=== PATIENT | female | born 1980 | race Caucasian/White ===

== ENCOUNTER 2019-04-14 19:49 | Inpatient (IN) | payer MEDICAID ==
[~2019-04-14] VITALS: Ht 157.5 cm; Wt 59.9 kg
[2019-04-14 20:05] VITALS: BP 140/90
--- NOTE | 2019-04-14 20:08 | NUR ---
TO LOBBY A/W BED AMBULATORY
--- NOTE | 2019-04-14 20:58 | NUR ---
PT AMBULATED TO BED 06.
[2019-04-14 21:27] LABS: APPEARANCE,URINE CLEAR (CLEAR); BILIRUBIN,URINE 1+ (NEGATIVE); BLOOD, URINE NEGATIVE (NEGATIVE); COLOR,URINE YELLOW (YELLOW); LEUKOCYTE ESTERASE ,URINE 1+ (NEGATIVE); NITRITE, URINE NEGATIVE (NEGATIVE); UGLUCOSE NEGATIVE (NEGATIVE)
--- NOTE | 2019-04-14 21:28 | NUR ---
DR. JAYDE LIRIANO AT BEDSIDE.
--- NOTE | 2019-04-14 21:30 | NUR ---
38 YO F BIB SELF AND FAMILY FOR 11/11 CONSTANT RUQ PAIN X 10 HOURS WITH EPISODE OF VOMITING X 1 THIS MORNING. PT DENIES NVD AT THIS TIME. PT HAS HX OF GALLSTONES AND STATES THIS PAIN FEELS LIKE A GALLSTONE ATTACK. PT DESCRIBES THE PAIN "DEEP" AND IS UNABLE TO DESCRIBE QUALITY. TOOK IBUPROFEN AT HOME WITH LITTLE RELIEF. ABD IS ROUND, SOFT/PLIABLE AND NON TENDER. PT AWAKE, A/O X 4. APPEARS UNCOMFORTABLE BUT IS CALM, COOPERATIVE. SKIN NORMAL FOR ETHNICITY, WARM, DRY. BREATHING EVEN, UNLABORED. PMH-- GALLSTONES
--- NOTE | 2019-04-14 21:48 | NUR ---
US AT BEDSIDE.
[2019-04-14 21:49] LABS: RBC,URINE 0-5 /HPF (0-5)
[2019-04-14 22:28] LABS: BASOPHILS # (AUTO) 0.1 K/uL (0.00-0.22); BASOPHILS % (AUTO) 0.7 % (0.0-2.0); EOSINOPHILS # (AUTO) 0.1 K/uL (0-0.4); EOSINOPHILS % (AUTO) 0.8 % (0.0-4.0); HEMATOCRIT 38.6 % (36-48); HEMOGLOBIN 12.6 g/dL (12.0-16.0); LYMPHOCYTES # (AUTO) 1.8 K/uL (2.5-16.5); LYMPHOCYTES % (AUTO) 20.7 % (20.5-51.1); MEAN CORPUSCULAR HEMOGLOBIN 28 pg (27-31); MEAN CORPUSCULAR HGB CONC 33 g/dL (33-37); MEAN CORPUSCULAR VOLUME 85.4 fL (80-94); MONOCYTES # (AUTO) 0.4 K/uL (0.8-1.0); MONOCYTES % (AUTO) 4.8 % (1.7-9.3); NEUTROPHILS # (AUTO) 6.5 K/uL (1.8-7.7); PLATELET COUNT (AUTO) 249 K/uL (140-450); RED BLOOD CELL COUNT(AUTO) 4.52 MIL/uL (4.20-5.40); RED CELL DISTRIBUTION WIDTH 16.8 % (11.6-13.7); WHITE BLOOD COUNT (AUTO) 8.9 K/uL (4.8-10.8)
[2019-04-14] MEDS ORDERED: ONDANSETRON 4 MG/2 ML VIAL IVP ONE (22:40)
[2019-04-14] MEDS ORDERED: MORPHINE SULFATE 4 MG/ML SYR IVP ONE (22:40)
[2019-04-14 22:53] LABS: ANION GAP 11.9 (8-16); CREATININE 0.6 mg/dL (0.6-1.3); POTASSIUM 3.9 mmol/L (3.5-5.1)
[2019-04-15] MEDS ORDERED: ACETAMINOPHEN 325 MG TAB PO PRN
[2019-04-15] MEDS ORDERED: LORazepam 2 MG/ML VIAL IM/IVP PRN
[2019-04-15] MEDS ORDERED: HYDROcodone/APAP 5/325 MG 1 TAB TAB PO PRN
[2019-04-15] MEDS ORDERED: DOCUSATE SODIUM 100 MG GELCAP PO PRN
[2019-04-15] MEDS ORDERED: ZOLPIDEM 5 MG TAB PO PRN
--- NOTE | 2019-04-15 | NUR ---
MEDICATED WITH 4MG IVP ZOFRAN AND 4 MG IVP MORPHINE. WILL REASSESS.
[2019-04-15] MEDS ORDERED: diphenhydrAMINE 50 MG/ML VIAL IVP SCH ×2 (00:10→12:20)
--- NOTE | 2019-04-15 00:30 | NUR ---
REPORTS PAIN RELIEF; 6/10 PAIN. PT STATES THIS IS TOLERABLE. NAUSEA RESOLVED.
[2019-04-15 00:38] LABS: BARBITURATE, URINE NEG. ng/ml (NEG <=200); BENZODIAZEPINE, URINE NEG. ng/mL (NEG <=200); CANNABINOID, URINE NEG. ng/mL (NEG <=50); COCAINE, URINE NEG. ng/mL (NEG <=300); OPIATE, URINE NEG. ng/mL (NEG <=2000); PHENCYCLIDINE SCREEN,URINE NEG. ng/mL (NEG <=25)
--- NOTE | 2019-04-15 00:40 | NUR ---
Report given and care transfered to Makenzie RN room 119B. Transfered via wheel chair with VSS.
[2019-04-15 00:45] VITALS: BP 130/70
--- NOTE | 2019-04-15 00:45 | NUR ---
RECEIVED PT FROM ER VIA WHEELCHAIR PT IS AAOX4 FRISIAN SPEAKER , AMBULATORY HL ON LEFT AC PATENT GENERALIZED JAUNDICE NOT DISTRESS NOTED . MRSA NARES SWAB SCREEN TAKEN AND SENT OT LAB.PT IS ;ORIENTED TO THE FLOOR CALL LIGHT WITHIN REACH
[2019-04-15 00:58] LABS: CHOL/HDL RATIO 8.3 (1-4.5); FREE T4 (FREE THYROXINE) 1.31 ng/dL (0.76-1.46); PHOSPHORUS 3.5 mg/dL (2.5-4.9); THYROID STIMULATING HORMONE 0.99 uIU/mL (0.34-3.74)
[2019-04-15 01:00] LABS: PROTHROMBIN TIME 9.7 secs (10.8-13.4)
[2019-04-15] MEDS ORDERED: cefTRIAXone 1,000 MG VIAL ONE (01:30)
[2019-04-15] MEDS: NACL 0.9% 1,000 ML IV SCH ×3 (01:37→16:20)
--- NOTE | 2019-04-15 03:15 | NUR ---
PT IS SLEEPING WELL IV ON LEFT AC INFUSING WELL NOT DISTRESS NOTED
[2019-04-15] MEDS: metroNIDAZOLE 500 MG/NS PREMIX 100 ML IV SCH ×3 (05:29→20:28)
--- NOTE | 2019-04-15 05:38 | NUR ---
PT AWAKE RESTING ON BED DENIES ANY PAIN, IV ON LEFT AC INFUSING WELL , NOT DISTRESS NOTED
--- NOTE | 2019-04-15 07:02 | NUR ---
PT JAUNDICE , RESTING ON BED NOT SIGN OF PAIN NOTED IV ON LEFT AC INFUSING WELL, PT WILL BE ENDORSED TO DAY SHIFT NURSE FOR CONTINUE OF CARE
--- NOTE | 2019-04-15 07:30 | NUR ---
RECEIVED REPORT FROM NIGHT NURSE. PT IN BED AWAKE, AAOX4, DENIES PAIN, NO DISTRESS NOTED. FAMILY MEMBER AT THE BEDSIDE. IV IN PLACE, PATENT AND ASYMPTOMATIC INFUSING PER ORDER IN L AC 20G. RESPIRATIONS EVEN AND UNLABORED ON ROOM AIR, CLEAR BREATH SOUNDS. SKIN INTACT. PT IS NPO EXCEPT MEDS. SAFETY MEASURES IN PLACE. CALL LIGHT WITHIN REACH, BED IN LOW POSITION. WILL CONTINUE TO MONITOR.
[2019-04-15 08:00] VITALS: BP 113/67
[2019-04-15] MEDS: LACTOBACILLUS RHAMNOSUS GG 1 EACH CAP PO SCH (08:11)
--- NOTE | 2019-04-15 08:11 | NUR ---
MEDICATIONS ADMINISTERED PER ORDER. PT TOLERATED WELL, NO DISTRESS NOTED. SAFETY MESAURES IN PLACE. CALL LIGHT WITHIN REACH. WILL CONTINUE TO MONITOR.
--- NOTE | 2019-04-15 08:28 | NUR ---
PATIENT HAS BEEN SCREENED AND CATEGORIZED LOW NUTRITION RISK. PATIENT WILL BE SEEN WITHIN 7 DAYS OF ADMISSION. 04/21/[address]
[2019-04-15] MEDS: MORPHINE SULFATE 2 MG/ML SYR IVP PRN ×2 (09:42→20:26)
--- NOTE | 2019-04-15 09:47 | NUR ---
PT COMPLAINS OF PAIN OF 8 AND REQUESTED TO BE MEDICATED WITH PRN MORPHINE. MORPHINE ADMINISTERED AT THIS TIME. FAMILY MEMBER AT THE BEDSIDE.
--- NOTE | 2019-04-15 11:24 | NUR ---
PT STATES FEELING RELIEVED OF PAIN AT A TOLERABLE LEVEL OF 2. WILL CONTINUE TO MONITOR.
--- NOTE | 2019-04-15 12:25 | NUR ---
PT COMPLAINS OF ITCHING, 25MG BENADRYL IV PUSH GIVEN AT THIS TIME. PT IN NO DISTRESS. WILL CONTINUE TO MONITOR.
--- NOTE | 2019-04-15 15:49 | NUR ---
TALKED TO DR HOLM AFTER SEEING PT. PT SCHEDULED FOR LAP RAFAEL ON 04/16, PENDING CONSULT WITH DR RODRIGUEZ TO SCHEDULE AND PERFORM ERCP. RECEIVED ORDER FROM DR HOLM FOR LOW FAT DIET, AND NPO EXCEPT MEDS STARTING MIDNIGHT. CONSENT FOR LAP RAFAEL SIGNED BY PT AND IN CHART. WILL CONTINUE TO MONITOR
[2019-04-15 16:00] VITALS: BP 118/61
--- NOTE | 2019-04-15 17:40 | NUR ---
PT IN BED AWAKE, ACCOMPANIED BY FAMILY MEMBERS AT THE BEDSIDE. NO DISTRESS NOTED, DENIES PAIN. SAFETY MEASURES IN PLACE. CALL LIGHT WITHIN REACH. WILL CONTINUE TO MONITOR.
--- NOTE | 2019-04-15 19:06 | NUR ---
REPORT GIVEN TO NIGHT NURSE FOR CONTINUITY OF CARE.
--- NOTE | 2019-04-15 19:06 | NUR ---
RECIEVED PT AAOX4 , NID , IV SITE INTACT AND PATENT , C/O OF BEARABLE ABDL. PAIN AT THIS TIME. PLAN OF CARE DISCUSSED AND VERBALIZE UNDERSTANDING - CALL LIGHT WITHIN REACH. ON SAFETY PRECAUTION PROTOCOL . WILL CONTINUE TO MONITOR.
--- NOTE | 2019-04-15 20:26 | NUR ---
C/O ABDL. PAIN - PAIN SCALE 8/10 - MEDICATED ORDERED - WILL CONT. TO MONITOR.
[2019-04-15] MEDS: ONDANSETRON 4 MG/2 ML VIAL IM/IVP PRN (20:27)
--- NOTE | 2019-04-15 21:26 | NUR ---
MADE ROUNDS - SHE SAID PAIN IS REDUCED . WILL CONT. TO MONITOR. -CALL LIGHT WITHIN REACH.
[2019-04-16] VITALS: BP 130/74
--- NOTE | 2019-04-16 03:30 | NUR ---
ENDORSED TO JELLY FOR CONT. OF CARE W/ LATEST TEMP 100.2 - NO ACUTE DISTRESS NOTED.
--- NOTE | 2019-04-16 03:30 | NUR ---
RECEIVED BEDSIDE REPORT FROM LETY GRIJALVA. PT IS ASLEEP. RESPIRATIONS ARE EQUAL AND UNLABORED IN ROOM AIR. SKIN IS INTACT. PATIENT IS JAUNDICE. SKIN IS WARM TO THE TOUCH. C/C RUQ PAIN. DX CHOLELITHIASIS. IV ON LAC 20G IVF NS AT 100ML/H. INFUSING WELL. PT IS NPO FOR ERCP WITH DR RODRIGUEZ IN THE AM AND POSSIBLE SX WITH DR VILLAR. PT IS AMBULATORY. CALL LIGHT IS WITHIN REACH. WILL CONTINUE TO MONITOR.
[2019-04-16] MEDS: metroNIDAZOLE 500 MG/NS PREMIX 100 ML IV SCH ×3 (04:24→20:58)
[2019-04-16] MEDS: NACL 0.9% 1,000 ML IV SCH (05:25)
[2019-04-16 07:05] LABS: BASOPHILS % (AUTO) 0.4 % (0.0-2.0); EOSINOPHILS % (AUTO) 0.1 % (0.0-4.0); HEMATOCRIT 39.3 % (36-48); HEMOGLOBIN 13.1 g/dL (12.0-16.0); LYMPHOCYTES # (AUTO) 1.6 K/uL (2.5-16.5); LYMPHOCYTES % (AUTO) 15.6 % (20.5-51.1); MEAN CORPUSCULAR HEMOGLOBIN 28 pg (27-31); MEAN CORPUSCULAR HGB CONC 33 g/dL (33-37); MONOCYTES # (AUTO) 0.5 K/uL (0.8-1.0); MONOCYTES % (AUTO) 5.2 % (1.7-9.3); NEUTROPHILS # (AUTO) 8.2 K/uL (1.8-7.7); NEUTROPHILS % (AUTO) 78.7 % (42.2-75.2); PLATELET COUNT (AUTO) 272 K/uL (140-450); RED BLOOD CELL COUNT(AUTO) 4.68 MIL/uL (4.20-5.40); RED CELL DISTRIBUTION WIDTH 16.4 % (11.6-13.7); WHITE BLOOD COUNT (AUTO) 10.5 K/uL (4.8-10.8)
--- NOTE | 2019-04-16 07:26 | NUR ---
GAVE BEDSIDE REPORT TO DAY RN. PT ENDORSED IN STABLE CONDITION.
--- NOTE | 2019-04-16 07:28 | NUR ---
RECEIVED BEDSIDE REPORT FROM OPERATIONS AND INTELLIGENCE ASSISTANT NURSE SHAQUILLE FOR CONTINUITY OF CARE. PT IS AWAKE AND RESTING ON BED. PT SPEAKS [place] AND ABLE TO UNDERSTAND MINIMAL OF [place]. RESPIRATION EVEN AND UNLABORED ON RA. NO SIGNS OF DISTRESS NOTED. IV ON LAC 20G, CLEAN AND INTACT, INFUSING PER MD ORDER. SKIN CLEAN AND DRY. PT IS CONTINENT AND ABLE TO AMBULATE. NPO ENFORCED AND SIGN POSTED ON DOOR. PT IS AWARE OF BEING NPO. SAFETY MEASURES IN PLACE. BED IN LOW POSITION AND CALL LIGHT WITHIN REACH. INSTRUCTED PT TO USE THE CALL LIGHT FOR ANY ASSISTANCE AND PT WAS AWARE.
[2019-04-16 07:35] LABS: ALBUMIN 2.6 g/dL (3.4-5.0); ANION GAP 12.7 (8-16); CREATININE 0.4 mg/dL (0.6-1.3); POTASSIUM 3.7 mmol/L (3.5-5.1); TOTAL BILIRUBIN 6.5 mg/dL (0.0-1.0)
[2019-04-16 08:00] VITALS: BP 123/85
[2019-04-16] MEDS: LACTOBACILLUS RHAMNOSUS GG 1 EACH CAP PO SCH (08:55)
[2019-04-16] MEDS: DEXT 5% /NACL 0.9% 1,000 ML IV SCH ×2 (08:56→18:44)
--- NOTE | 2019-04-16 08:56 | NUR ---
ADMINISTERED MED PER MD ORDER, MED ED PROVIDED TO PT AND JUAN FRANCISCO BARLOW AT BEDSIDE, BOTH VERBALIZED UNDERSTANDING. PT TOLERATED MED WELL WITH A SIP OF WATER. CHANGED IVF TO D5 NS AND INFUSING AT 100 ML/HR. PT DENIED PAIN, SOB, AND DIZZINESS. NO SIGNS OF DISTRESS NOTED. SAFETY MEASURES IN PLACE. BED IN LOW POSITION AND CALL LIGHT WITHIN REACH. INSTRUCTED PT TO USE THE CALL LIGHT FOR ANY ASSISTANCE AND PT AWARE.
--- NOTE | 2019-04-16 09:16 | NUR ---
USED [facility] TO COMPLETE PRE-OP CHECKLIST FOR ERCP, SPOKE WITH ANGEL #[id number]. PT WAS AWARE OF PROCEDURE IS TAKING PLACE AND WILL MAINTAIN NPO. PT IS AWAKE AND TALKING TO COUSIN YEN BY BEDSIDE. NO SIGNS OF DISTRESS NOTED. SAFETY MEASURES IN PLACE.
--- NOTE | 2019-04-16 11:10 | NUR ---
PT AWAKE AND RESTING ON BED AT THIS TIME. FAMILY BY BEDSIDE. DENIED PAIN, SOB AND DIZZINESS. NO SIGNS OF DISTRESS NOTED. NPO MAINTAINED. SAFETY MEASURES IN PLACE. BED LOW POSITION AND CALL LIGHT WITHIN REACH. INSTRUCTED PT TO USE THE CALL LIGHT FOR ANY ASSISTANCE AND ALL SAID "OK."
--- NOTE | 2019-04-16 13:31 | NUR ---
DC PLANNIN YRS OLD FEMALE PATIENT WAS ADMITTED FROM HOME WITH A DX OF CHOLELITHIASIS . PT HAS NO MEDICAL HISTORY. ULTRASOUND SHOWED CHOLELITHIASIS WITH MILD GALLBLADDER WAS THICKENING. ADMINISTERED MORPHINE IVP FOR PAIN, IVF AND FLAGYL IV ABX . CONSULTED WITH DR VILLAR FOR SURGERY. DC PLAN TO GO HOME WHEN STABLE. CM TO FOLLOW Addendum: 04/20/19 at 1535 by Amanda Padron CM DC PLANNING: S/P LAP RAFAEL AND REMOVAL OF GAL STONE WITH OUT REMOVAL GALL BLADDER, ERCP PERFORMED BY DR RODRIGUEZ. PATIENT TOLERATED WELL , CLEARED BY THE SURGEON AND GI AND DC HOMED AND F/U WITH THE SURGEON ON APR 27 AT 9:30 AM PT VERBALIZED UNDERSTANDING.
--- NOTE | 2019-04-16 13:47 | NUR ---
ADMINISTERED FLAGYL PER MD ORDER, MED ED PROVIDED TO PT AND COUSIN YEN AT BEDSIDE, BOTH VERBALIZED UNDERSTANDING. PT AWAKE AND RESTING ON BED. NO SIGNS OF DISTRESS NOTED. SAFETY MEASURES IN PLACE.
[2019-04-16] MEDS ORDERED: PROPOFOL 200 MG/20 ML VIAL IV ONE (14:45)
[2019-04-16] MEDS: LACTATED RINGERS 1,000 ML IV SCH (16:17)
[2019-04-16] MEDS ORDERED: ONDANSETRON 4 MG/2 ML VIAL IVP PRN (16:20)
[2019-04-16] MEDS ORDERED: HYDROmorphone 1 MG/ML AMP IVP PRN (16:20)
[2019-04-16] MEDS ORDERED: MEPERIDINE 25 MG/ML SYR IVP PRN (16:20)
[2019-04-16] MEDS ORDERED: diphenhydrAMINE 50 MG/ML VIAL IVP PRN (16:20)
[2019-04-16 17:15] VITALS: BP 112/64
--- NOTE | 2019-04-16 17:15 | NUR ---
PT CAME BACK TO UNIT ACCOMPANY WITH OR NURSES. PT IS AWAKE AND RESTING ON BED. VITAL SIGNS TAKEN. NO SIGNS OF DISTRESS NOTED. FAMILY BY BEDSIDE. SAFETY MEASURES IN PLACE.
--- NOTE | 2019-04-16 18:44 | NUR ---
EXPLAINED TO PT AND MOTHER AT BEDSIDE THAT DR CHANGED DIET TO CLEAR LIQUID AND NPO AFTER MIDNIGHT, BOTH SAID OK. CALLED FNA AND LEFT A MESSAGE. FINANCIAL SYSTEMS ANALYST IS GOING TO SUPERVISOR [employer]OD CREW A FOOD TRAY. PT IS RESTING ON BED AT THIS TIME. NO SIGNS OF DISTRESS NOTED. SAFETY MEASURES IN PLACE.
--- NOTE | 2019-04-16 18:54 | NUR ---
PT RECEIVED HER DINNER TRAY. NO SIGNS OF DISTRESS NOTED. MOTHER BY BEDSIDE.
--- NOTE | 2019-04-16 19:17 | NUR ---
ENDORSED PT AT BEDSIDE TO SIGHT EFFECTS SPECIALIST NURSE FOR CONTINUITY OF CARE. PT AWAKE AND EATING POPSICLE ON BED. FAMILY BY BEDSIDE. NO SIGNS OF DISTRESS NOTED. PT IS IN STABLE CONDITION. SAFETY MEASURES IN PLACE.
--- NOTE | 2019-04-16 19:18 | NUR ---
RECEIVED BEDSIDE REPORT FROM AM SHIFT NURSE MARICARMEN FOR CONTINUITY OF CARE. PT IS AWAKE AND RESTING ON BED. PT SPEAKS CITIZ[place] OF [place] AND ABLE TO UNDERSTAND MINIMAL OF [place]. WITH FAMILY AT BEDSIDE, ACTING WATER RESOURCES PROJECT MANAGER.PT IS AMBULATORY. NO SIGNS OF RESPIRATORY DISTRESS NOTED, ON RA. IV ON LAC 20G, PATENT AND INTACT. SKIN CLEAN AND DRY. CLEAR LIQ BUT NPO STARTING MIDNIGHT. FOR LAP RAFAEL TOMORROW. CONSENT SIGNED ATTACHED TO CHART. PLACED ON LOW BED. CALL LIGHT WITHIN REACH
--- NOTE | 2019-04-16 20:00 | NUR ---
FAMILY LEFT AND FIXED IV ON THE LEFT AC 20, IV PUMP KEPT ON BEEPING. FLUSHED IV AND READJUSTED THE LINE. PLACED IV SPLINT ON ELBOW.
--- NOTE | 2019-04-16 23:27 | NUR ---
PT TRYING TO GET SOME SLEEP, PT COMFORTABLE NO COMPLAINTS AT THIS TIME
[2019-04-17] VITALS: BP 116/65
[2019-04-17] MEDS: LACTATED RINGERS 1,000 ML IV SCH ×2 (00:37→08:57)
--- NOTE | 2019-04-17 00:46 | NUR ---
D5 NS AT 100 ML/ RUNNING, LR TO BE GIVEN AFTER OR CHANDA PER ENDORSEMENT
--- NOTE | 2019-04-17 02:45 | NUR ---
PT HAVING HARD TIME TO SLEEP BECAUSE OF PAIN, ABDOMEN. WILL MEDICATE ORDERED
--- NOTE | 2019-04-17 04:00 | NUR ---
PT SLEEPING, BUT EASILY AWAKENED, STILL W/ SOME LACK OF SLEEP. WILL CONTINUE TO MONITOR.
[2019-04-17] MEDS: metroNIDAZOLE 500 MG/NS PREMIX 100 ML IV SCH ×3 (04:54→21:25)
[2019-04-17] MEDS: DEXT 5% /NACL 0.9% 1,000 ML IV SCH (06:08)
--- NOTE | 2019-04-17 06:15 | NUR ---
PT ASLEEP BUT EASILY AWAKENED, NO COMPLAINTS OF PAIN AT THIS TIME. NO SOB, NO RESPIRATORY DISTRESS. ENDORSED TO NEXT SHIFT FOR CONTINUITY OF CARE.
--- NOTE | 2019-04-17 07:15 | NUR ---
RECEIVED ENDORSEMENT AT BEDSIDE FROM NOC SHIFT RN. PATIENT IS AWAKE, ALERT AND ORIENTED X 4. NOT IN ANY DISTRESS. PATIENT IS ON ROOM AIR. RESPIRATION EVEN AND UNLABORED. NO C/O PAIN/DISCOMFORT. NKA. FULL CODE. ON NPO FOR SURGERY. IV SITE TO LAC 20 G. INTACT AND PATENT WITH IVF INFUSING WELL. SKIN IS INTACT. ABLE TO AMBULATE WITH ASSIST. SAFETY MEASURES IN PLACE. CALL LIGHT BUTTON WITHIN REACH.
[2019-04-17 07:21] LABS: BASOPHILS % (AUTO) 0.6 % (0.0-2.0); EOSINOPHILS # (AUTO) 0.1 K/uL (0-0.4); EOSINOPHILS % (AUTO) 0.8 % (0.0-4.0); HEMATOCRIT 35.6 % (36-48); HEMOGLOBIN 11.7 g/dL (12.0-16.0); LYMPHOCYTES # (AUTO) 1.7 K/uL (2.5-16.5); LYMPHOCYTES % (AUTO) 24.9 % (20.5-51.1); MEAN CORPUSCULAR HEMOGLOBIN 28 pg (27-31); MEAN CORPUSCULAR HGB CONC 33 g/dL (33-37); MEAN CORPUSCULAR VOLUME 84.8 fL (80-94); MONOCYTES # (AUTO) 0.4 K/uL (0.8-1.0); MONOCYTES % (AUTO) 6.5 % (1.7-9.3); NEUTROPHILS # (AUTO) 4.5 K/uL (1.8-7.7); NEUTROPHILS % (AUTO) 67.2 % (42.2-75.2); PLATELET COUNT (AUTO) 235 K/uL (140-450); RED BLOOD CELL COUNT(AUTO) 4.19 MIL/uL (4.20-5.40); RED CELL DISTRIBUTION WIDTH 16.5 % (11.6-13.7); WHITE BLOOD COUNT (AUTO) 6.7 K/uL (4.8-10.8)
[2019-04-17 07:24] LABS: ALBUMIN 2.4 g/dL (3.4-5.0); ANION GAP 11.8 (8-16); CARBON DIOXIDE 26.9 mmol/L (21-32); CREATININE 0.4 mg/dL (0.6-1.3); POTASSIUM 3.7 mmol/L (3.5-5.1)
[2019-04-17 07:41] LABS: TOTAL BILIRUBIN 4.9 mg/dL (0.0-1.0)
[2019-04-17 08:00] VITALS: BP 115/73
[2019-04-17] MEDS: LACTOBACILLUS RHAMNOSUS GG 1 EACH CAP PO SCH (09:00)
--- NOTE | 2019-04-17 09:54 | NUR ---
PT IS RESTING ON BED. DENIED PAIN, SOB AND DIZZINESS. NO SIGNS OF DISTRESS NOTED. SAFETY MEASURES IN PLACE.
--- NOTE | 2019-04-17 11:08 | NUR ---
PT IS AWAKE AND TALKING TO FAMILY AT BEDSIDE. NO SIGNS OF DISTRESS NOTED. SAFETY MEASURES IN PLACE.
--- NOTE | 2019-04-17 13:05 | NUR ---
ADMINISTERED MED PER MD ORDER. NO A/R NOTED. MED ED PROVIDED. PATIENT IS RESTING ON BED. FAMILY AT BEDSIDE. NO SOB NOTED. SAFETY MEASURES IN PLACE.
--- NOTE | 2019-04-17 15:31 | NUR ---
PT IS OFF UNIT WITH OR NURSES. PT IS IN STABLE CONDITION.
[2019-04-17] MEDS ORDERED: KETOROLAC 30 MG/ML VIAL IVP PRN (15:40)
[2019-04-17] MEDS ORDERED: BUPIVACAINE-MPF 0.25% 30 ML VIAL INJ ONE (15:48)
[2019-04-17] MEDS ORDERED: KETOROLAC 30 MG/ML VIAL ONE (16:11)
[2019-04-17] MEDS ORDERED: ONDANSETRON 4 MG/2 ML VIAL ONE (16:11)
[2019-04-17] MEDS ORDERED: DESFLURANE 240 ML BTL INH ONE (16:11)
[2019-04-17] MEDS ORDERED: ROCURONIUM 50 MG/5 ML VIAL IV ONE (16:11)
[2019-04-17] MEDS ORDERED: HYDROmorphone PFS 2 MG/ML SYR ONE (16:11)
[2019-04-17] MEDS ORDERED: PROPOFOL 200 MG/20 ML VIAL IV ONE (16:11)
[2019-04-17] MEDS ORDERED: DEXAMETHASONE 4 MG/ML VIAL ONE (16:11)
[2019-04-17] MEDS ORDERED: HYDROmorphone 1 MG/ML AMP IVP PRN (17:15)
[2019-04-17] MEDS ORDERED: ONDANSETRON 4 MG/2 ML VIAL IVP PRN (17:15)
--- NOTE | 2019-04-17 19:17 | NUR ---
FULL REPORT GAVE TO RUNNER ON NURSE. PT IS AT RECOVERY ROOM AT THIS TIME.
--- NOTE | 2019-04-17 19:20 | NUR ---
RECEIVED BEDSIDE REPORT FROM AM SHIFT RN FOR PT'S CONTINUITY OF CARE. PT IS CURRENTLY STILL IN POST OP. FAMILY MEMBERS IN THE PT'S ROOM. GAVE UPDATE, THEY VERBALIZED UNDERSTANDING.
--- NOTE | 2019-04-17 20:05 | NUR ---
RECEIVED BEDSIDE REPORT FROM POST OP RN DEMARCUS, FOR PT'S CONTINUITY OF CARE. PT IS AAOX4, HONDURAN SPEAKING, STATUS POST EXPLORATORY LAP, AND OPEN LAP, DRESSING DRY AND INTACT, CHRISTIANO DRAIN IN PLACE WITH LESS THAN 10ML OUTPUT, PT HAS NG TUBE IN PLACE, ON ROOM AIR, HAS LEFT AC 20G SALINE LOCK AND RIGHT HAND 18G WITH LR WIDE OPEN, FROM SURGERY, CHAU CATH IN PLACE, PT STATES HAS PAIN 7/10 BUT REFUSED PAIN MEDICATION. SAFETY MEASURES IN PLACE, AND CALL LIGHT WITHIN REACH. ORIENTED PT TO TIE FASTENER ROUTINE, AND HOSPITAL ENVIRONMENT, PT VERBALIZED UNDERSTANDING. POST OP VS PROTOCOL FOLLOWED. WILL CONTINUE TO MONITOR PT.
[2019-04-17] MEDS: DEXT 5% / NACL 0.45% 1,000 ML IV SCH (21:30)
--- NOTE | 2019-04-17 21:30 | NUR ---
PT AWAKE, FAMILY MEMBERS AT BEDSIDE. ADMINISTERED SCHEDULED IVF AND IV ABX ORDERED. PT COMFORTABLE AND NEEDS ARE MET AT THIS TIME.
--- NOTE | 2019-04-17 23:00 | NUR ---
SPOKE WITH DR. VILLAR FOR NG TUBE VERIFICATION FOR INDICATION. Larissa VILLAR ORDERED NG TUBE FOR IMPAIRMENT OF DUODENUM, ON LOW INTERMITTENT SUCTION; XRAY FOR PLACEMENT VERIFICATION; PROTONIX 40MG IVP ONCE A DAY. WILL CARRY OUT ORDERS.
--- NOTE | 2019-04-17 23:30 | NUR ---
RT AT BEDSIDE FOR INCENTIVE SPIROMETER TEACHING. ATTACHED NG TUBE TO LOW INTERMITTENT SUCTION, PT TOLERATING IT WELL. BEEF PUSHER AT BEDSIDE FOR VERIFICATION OF NG TUBE PLACEMENT. PT DENIES ANY NEEDS AT THIS TIME.
[2019-04-18] VITALS: BP 107/56
--- NOTE | 2019-04-18 00:07 | NUR ---
VS CHECKED AND CHARTED. ADMINISTERED SCHEDULED IV ABX ORDERED. PT DENIES ANY PAIN AT THIS TIME. PT MADE COMFORTABLE. SAFETY MEASURES IN PLACE, AND CALL LIGHT IS WITHIN REACH. WILL CONTINUE TO MONITOR PT.
[2019-04-18] MEDS: MORPHINE SULFATE 2 MG/ML SYR IVP PRN ×2 (03:30→08:32)
--- NOTE | 2019-04-18 03:30 | NUR ---
PT C/O ABD PAIN 09/10. ADMINISTERED PRN IVP PAIN MEDICATION ORDERED. ASSESSED CHRISTIANO DRAIN. ASSESSED DRESSING - DRY AND INTACT, NG TUBE ON LOW INTERMITTENT SUCTION. PT'S NEEDS MET. WILL CONTINUE TO MONITOR PT.
[2019-04-18 04:00] VITALS: BP 124/72
[2019-04-18] MEDS: metroNIDAZOLE 500 MG/NS PREMIX 100 ML IV SCH ×3 (04:28→21:11)
--- NOTE | 2019-04-18 04:28 | NUR ---
ADMINISTERED SCHEDULED IV ABX ORDERED. PT TOLERATED THEM WELL. EMPTIED CHRISTIANO DRAIN, OUT 40 ML. CHAU CATH 650 ML OUT. PT TEACHING GIVEN FOR BEDPAN USE, BEDPAN IN THE RESTROOM.
[2019-04-18] MEDS: DEXT 5% / NACL 0.45% 1,000 ML IV SCH ×2 (04:45→15:09)
--- NOTE | 2019-04-18 06:10 | NUR ---
PT LYING DOWN ASLEEP. RESPIRATIONS EVEN AND UNLABORED. NG TUBE IN PLACE, ON LOW INTERMITTENT SUCTION, VERY MINIMAL OUTPUT, ONLY ON THE TUBING. PT SHOWS NO SIGNS OF DISTRESS OR DISCOMFORT. WILL ENDORSE TO AM SHIFT RN FOR PT'S CONTINUITY OF CARE.
[2019-04-18 07:10] LABS: BASOPHILS # (AUTO) 0.1 K/uL (0.00-0.22); BASOPHILS % (AUTO) 0.7 % (0.0-2.0); HEMATOCRIT 35.7 % (36-48); HEMOGLOBIN 11.8 g/dL (12.0-16.0); LYMPHOCYTES # (AUTO) 2.1 K/uL (2.5-16.5); LYMPHOCYTES % (AUTO) 20.5 % (20.5-51.1); MEAN CORPUSCULAR HEMOGLOBIN 28 pg (27-31); MEAN CORPUSCULAR HGB CONC 33 g/dL (33-37); MEAN CORPUSCULAR VOLUME 84.6 fL (80-94); MONOCYTES # (AUTO) 0.6 K/uL (0.8-1.0); NEUTROPHILS # (AUTO) 7.6 K/uL (1.8-7.7); NEUTROPHILS % (AUTO) 72.8 % (42.2-75.2); PLATELET COUNT (AUTO) 278 K/uL (140-450); RED BLOOD CELL COUNT(AUTO) 4.22 MIL/uL (4.20-5.40); RED CELL DISTRIBUTION WIDTH 16.6 % (11.6-13.7); WHITE BLOOD COUNT (AUTO) 10.4 K/uL (4.8-10.8)
--- NOTE | 2019-04-18 07:15 | NUR ---
RECEIVED REPORT FROM NIGHT NURSE. PT IN BED AWAKE, AAOX4, NO DISTRESS NOTED, DENIES PAIN. IV IN PLACE IN L AC 20G PATENT AND ASYMPTOMATIC INFUSING PER ORDER. R HAND IV PATENT AND ASYMPTOMATIC SALINE LOCKED. RESPIRATIONS EVEN AND UNLABORED ON ROOM AIR. SURGICAL WOUNDS PRESENT IN ABDOMEN, DRAINAGE CLEAN AND INTACT, CHIRSTIANO IN PLACE. CHAU IN PLACE. NG TUBE IN PLACE. SAFETY MEASURES IN PLACE. CALL LIGHT WITHIN REACH. BED IN LOW POSITION. WILL CONTINUE TO MONITOR.
[2019-04-18 07:32] LABS: ANION GAP 12.3 (8-16); CARBON DIOXIDE 26.4 mmol/L (21-32); CREATININE 0.4 mg/dL (0.6-1.3); POTASSIUM 3.7 mmol/L (3.5-5.1); TOTAL BILIRUBIN 2.5 mg/dL (0.0-1.0)
[2019-04-18 08:00] VITALS: BP 107/63
[2019-04-18] MEDS: LACTOBACILLUS RHAMNOSUS GG 1 EACH CAP PO SCH (08:30)
[2019-04-18] MEDS: PANTOPRAZOLE 40 MG INJ VIAL IVP SCH (08:31)
--- NOTE | 2019-04-18 08:56 | NUR ---
MEDICATIONS ADMINISTERED PER ORDER. PT TOLERATED WELL, NO DISTRESS NOTED. PT REEDUCATED ON USE OF INCENTIVE SPIROMETER. PERFORMED 10 BREATHS. SAFETY MEASURES IN PLACE. CALL LIGHT WITHIN REACH. WILL CONTINUE TO MONITOR.
--- NOTE | 2019-04-18 09:15 | NUR ---
Spoke to Yordy from [facility] transfer service re: transfer request. Face sheet, H&P, operative record, recent MD progress notes, labs, & med list faxed to [phone] per request. Awaiting review and approval of transfer.
--- NOTE | 2019-04-18 09:20 | NUR ---
Called [facility] transfer service re: transfer request but inpatient currently full.
--- NOTE | 2019-04-18 09:28 | NUR ---
Spoke to Rhoda from [facility] transfer service re: transfer request. Face sheet, H&P, operative record, recent MD progress notes, labs, & med list faxed to [phone] per request. Awaiting review and approval of transfer.
--- NOTE | 2019-04-18 09:56 | NUR ---
Received call back from [facility] transfer center requesting for Dr Aguilar's direct number re: inquiries from Dr. Raymond (general surgeon). 's phone number provided.
--- NOTE | 2019-04-18 11:27 | NUR ---
NGT TUBE AND CHAU REMOVED AT THIS TIME PER ORDER. PT TOLERATED WELL, NO DISTRESS NOTED. NO COMPLICATIONS. FAMILY MEMBERS AT THE BEDSIDE. SAFETY MEASURES IN PLACE. CALL LIGHT WITHIN REACH. WILL CONTINUE TO MONITOR.
[2019-04-18 12:00] VITALS: BP 109/61
--- NOTE | 2019-04-18 13:59 | NUR ---
MEDICATIONS ADMINISTERED PER ORDER. PT TOLERATED WELL. NO DISTRESS NOTED. SAFETY MEASURES IN PLACE. CALL LIGHT WITHIN REACH. WILL CONTINUE TO MONITOR.
[2019-04-18 16:00] VITALS: BP 113/60
--- NOTE | 2019-04-18 16:20 | NUR ---
PT AWAKE IN BED WITH FAMILY MEMBERS AT THE BEDSIDE. NO DISTRES NOTED, DENIES PAIN AT THIS TIME. RESPIRATIONS EVEN AND UNLABORED. SAFETY MEASURES IN PLACE. CALL LIGHT WITHIN REACH, WILL CONTINUE TO MONITOR.
--- NOTE | 2019-04-18 18:20 | NUR ---
ASSISTED PT IN URINATING IN BED MENDEZ. CHRISTIANO DRAINED, 55ML OUTPUT. SAFETY MEASURES IN PLACE. CALL LIGHT WITHIN REACH. WILL CONTINUE TO MONITOR.
--- NOTE | 2019-04-18 19:10 | NUR ---
REPORT GIVEN TO NIGHT NURSE FOR CONTINUITY OF CARE.
--- NOTE | 2019-04-18 19:10 | NUR ---
RECIEVED PT AAOX4 , C/O HEADACHE , AFEBRILE , W SURGICAL SITE INTACT - W/ DRAIN - INTACT AND PATENT , IV SITE INTACT AND PATENT , POST REMOVAL OF FC - VOIDED FREELY 2X / BEDPAN , POST REMOVAL OF NGT - ATE FULL LIQ. DIET - TOLERATED WELL . RELATIVES AT BEDSIDE . POC DISCUSSED AND VERBALIZE UNDERSTANDING. ON SAFETY / FALL PRECAUTION PROTOCOL - CALL LIGHT WITHIN REACH . WILL CONT. TO MONITOR - WILL MEDICATE FOR HEADACHE .
[2019-04-18] MEDS: HYDROcodone/APAP 5/325 MG 1 TAB TAB PO PRN (19:50)
[2019-04-18 20:00] VITALS: BP 114/77
--- NOTE | 2019-04-18 23:00 | NUR ---
NPO BEGIN AT MN - FOR NM HIDA SCAN GB CHANDA .
[2019-04-19] VITALS: BP 110/60
--- NOTE | 2019-04-19 02:00 | NUR ---
MADE ROUNDS . NO S/S OF ACUTE DISTRESS NOTED AT THIS TIME , CALL LIGHT RADHA QUINN.
[2019-04-19] MEDS: DEXT 5% / NACL 0.45% 1,000 ML IV SCH ×3 (02:32→20:45)
[2019-04-19] MEDS: MORPHINE SULFATE 2 MG/ML SYR IVP PRN (02:47)
[2019-04-19] MEDS: ONDANSETRON 4 MG/2 ML VIAL IM/IVP PRN (02:47)
--- NOTE | 2019-04-19 02:47 | NUR ---
C/O PAIN SHE RATES THE PAIN 09/10 - WILL MEDICATE ORDERED . CALL LIGHT WITH REACH . DRESSING INTACT - NO SIGNS OF ACTIVE BLEEDING NOTED AT THIS TIME. CALL LIGHT WITHIN REACH.
[2019-04-19 04:00] VITALS: BP 120/77
--- NOTE | 2019-04-19 04:00 | NUR ---
MADE ROUNDS , NO S/ S OF ACUTE DISTRESS , BEARABLE PAIN SHE SAID.NO ACTIVE BLEEDING IN SURGICAL , WILL CONT. TO MONITOR.
[2019-04-19] MEDS: metroNIDAZOLE 500 MG/NS PREMIX 100 ML IV SCH ×3 (04:33→20:49)
--- NOTE | 2019-04-19 07:12 | NUR ---
ENDORSE - PT - STABLE.
--- NOTE | 2019-04-19 07:13 | NUR ---
RECEIVED REPORT FROM MARBLE CARVER NURSE. PT IS AWAKE AND STABLE. PT HAS IV ON LEFT AC. ON ROOM AIR. PT IS ON FULL LIQUID DIET. CALL LIGHT WITHIN PT'S REACH, BED ON LOW, SIDE RAILS UP. WILL CONTINUE TO MONITOR
[2019-04-19 07:52] LABS: BASOPHILS # (AUTO) 0.1 K/uL (0.00-0.22); BASOPHILS % (AUTO) 0.6 % (0.0-2.0); EOSINOPHILS # (AUTO) 0.2 K/uL (0-0.4); EOSINOPHILS % (AUTO) 1.6 % (0.0-4.0); HEMATOCRIT 34.2 % (36-48); HEMOGLOBIN 11.5 g/dL (12.0-16.0); LYMPHOCYTES # (AUTO) 2.1 K/uL (2.5-16.5); LYMPHOCYTES % (AUTO) 19.7 % (20.5-51.1); MEAN CORPUSCULAR HEMOGLOBIN 28 pg (27-31); MEAN CORPUSCULAR HGB CONC 34 g/dL (33-37); MEAN CORPUSCULAR VOLUME 83.1 fL (80-94); MONOCYTES # (AUTO) 0.6 K/uL (0.8-1.0); MONOCYTES % (AUTO) 5.1 % (1.7-9.3); NEUTROPHILS # (AUTO) 7.9 K/uL (1.8-7.7); PLATELET COUNT (AUTO) 259 K/uL (140-450); RED BLOOD CELL COUNT(AUTO) 4.12 MIL/uL (4.20-5.40); WHITE BLOOD COUNT (AUTO) 10.8 K/uL (4.8-10.8)
[2019-04-19 07:53] LABS: ANION GAP 10.9 (8-16); CARBON DIOXIDE 27.8 mmol/L (21-32); CREATININE 0.4 mg/dL (0.6-1.3); POTASSIUM 3.7 mmol/L (3.5-5.1)
[2019-04-19 08:00] VITALS: BP 119/77
[2019-04-19 08:01] LABS: BILIRUBIN,DIRECT 1.4 mg/dL (0.0-0.3)
[2019-04-19] MEDS: PANTOPRAZOLE 40 MG INJ VIAL IVP SCH (11:32)
[2019-04-19] MEDS: LACTOBACILLUS RHAMNOSUS GG 1 EACH CAP PO SCH (11:33)
[2019-04-19] MEDS: HYDROcodone/APAP 5/325 MG 1 TAB TAB PO PRN (11:34)
--- NOTE | 2019-04-19 11:40 | NUR ---
MORNING MEDS GIVEN AFTER THE SCAN WAS DONE. PT IS SITTING ON THE CHAIR. PT TOLERATED WELL. WILL CONTINUE TO MONITOR
[2019-04-19 12:00] VITALS: BP 110/68
--- NOTE | 2019-04-19 12:18 | NUR ---
IV FLUID CHANGED AND HANGED FLAGYL VIA PIGGYBACK. CLEANED AND APPLIED DRESSING ON SURGICAL WOUND OREDERED BY DR. LUGO
--- NOTE | 2019-04-19 12:53 | NUR ---
PT IS PICKED UP BY RADIOLOGY FOR NM HIDA GB VASC. FLOW. PT IS STABLE.
--- NOTE | 2019-04-19 15:30 | NUR ---
DRAINED 60 CC OF SEROUS DRAINAGE. PT IS SITING ON BED. PT IS STABLE. FAMILY AT BEDSIDE. WILL CONTINUE TO MONITOR
[2019-04-19 16:00] VITALS: BP 120/70
--- NOTE | 2019-04-19 18:55 | NUR ---
REPORT GIVEN TO DEAN NURSE. PT IS STABLE. FAMILY AT BEDSIDE. CALL LIGHT WITHIN PT'S REACH
--- NOTE | 2019-04-19 19:00 | NUR ---
RECEIVED BEDSIDE REPORT FROM DAY SHIFT NURSE. PATIENT IS AWAKE, ALERT, AND COOPERATIVE. RESPIRATION EVEN UNLABORED ON ROOM AIR. NO DISTRESS NOTED. SKIN IS WARM AND DRY. IV PATENT AND INTACT. PLAN OF CARE WAS DISCUSSED. FAMILY AT BEDSIDE. ALL SAFETY MEASURES IN PLACE. BED IS AT LOW POSITION. CALL LIGHT WITHIN REACH AND VERBALIZES ITS USE. WILL CONTINUE TO MONITOR.
--- NOTE | 2019-04-19 19:54 | NUR ---
INITIAL ASSESSMENT DONE. VITALS WERE TAKEN. S/P LAP RAFAEL. SURGICAL INCISION CLEAN AND NO SIGN AND SYMPTOMS OF INFECTION. CHRISTIANO DRAINAGE NOTED. DRAINING SERIOUGENOUS COLOR. DENIES PAIN. WILL CONTINUE TO MONITOR.
[2019-04-19 20:00] VITALS: BP 129/86
--- NOTE | 2019-04-19 20:49 | NUR ---
ALL SCHEDULED MEDS WERE GIVEN PER ORDER. NO ASE NOTED. WILL CONTINUE TO MONITOR.
--- NOTE | 2019-04-19 22:33 | NUR ---
CHECKED PATIENT. PATIENT IS WATCHING TV RESPIRATION EVEN UNLABORED ON ROOM AIR. NO DISTRESS NOTED. WILL CONTINUE TO MONITOR.
[2019-04-20] VITALS: BP 116/75
--- NOTE | 2019-04-20 00:02 | NUR ---
VITALS WERE TAKEN. PATIENT IN STABLE CONDITION. NO DISTRESS NOTED. WILL CONTINUE TO MONITOR.
[2019-04-20] MEDS: MORPHINE SULFATE 2 MG/ML SYR IVP PRN (01:14)
--- NOTE | 2019-04-20 01:15 | NUR ---
PATIENT COMPLAINED OF HEADACHE 09/10. PRN PAIN MED ADMINISTER PER ORDER. WILL CONTINUE TO MONITOR.
--- NOTE | 2019-04-20 02:30 | NUR ---
CHECKED PATIENT. PATIENT SLEEPING RESPIRATION EVEN UNLABORED ON ROOM AIR. NO DISTRESS NOTED. WILL CONTINUE TO MONITOR.
--- NOTE | 2019-04-20 03:51 | NUR ---
VITALS WERE TAKEN. PATIENT IN STABLE CONDITION. NO DISTRESS NOTED. WILL CONTINUE TO MONITOR.
[2019-04-20 04:00] VITALS: BP 122/78
--- NOTE | 2019-04-20 04:13 | NUR ---
CHRISTIANO DRAINAGE 50 CC SEROSANGUINEOUS COLOR.
[2019-04-20] MEDS: metroNIDAZOLE 500 MG/NS PREMIX 100 ML IV SCH (04:42)
[2019-04-20] MEDS: DEXT 5% / NACL 0.45% 1,000 ML IV SCH (04:43)
[2019-04-20 06:21] LABS: BASOPHILS # (AUTO) 0.1 K/uL (0.00-0.22); BASOPHILS % (AUTO) 1.1 % (0.0-2.0); EOSINOPHILS # (AUTO) 0.3 K/uL (0-0.4); EOSINOPHILS % (AUTO) 2.9 % (0.0-4.0); HEMATOCRIT 31.6 % (36-48); HEMOGLOBIN 10.5 g/dL (12.0-16.0); LYMPHOCYTES % (AUTO) 21.7 % (20.5-51.1); MEAN CORPUSCULAR HEMOGLOBIN 28 pg (27-31); MEAN CORPUSCULAR HGB CONC 33 g/dL (33-37); MEAN CORPUSCULAR VOLUME 83.9 fL (80-94); MONOCYTES # (AUTO) 0.6 K/uL (0.8-1.0); MONOCYTES % (AUTO) 6.7 % (1.7-9.3); NEUTROPHILS # (AUTO) 6.4 K/uL (1.8-7.7); NEUTROPHILS % (AUTO) 67.6 % (42.2-75.2); PLATELET COUNT (AUTO) 259 K/uL (140-450); RED BLOOD CELL COUNT(AUTO) 3.76 MIL/uL (4.20-5.40); WHITE BLOOD COUNT (AUTO) 9.4 K/uL (4.8-10.8)
[2019-04-20 06:35] LABS: ANION GAP 12.2 (8-16); CARBON DIOXIDE 27.1 mmol/L (21-32); CREATININE 0.5 mg/dL (0.6-1.3); POTASSIUM 3.3 mmol/L (3.5-5.1)
[2019-04-20 07:03] LABS: MAGNESIUM 1.9 mg/dL (1.8-2.4); PHOSPHORUS 3.5 mg/dL (2.5-4.9)
--- NOTE | 2019-04-20 07:16 | NUR ---
ENDORSED PATIENT TO DAY SHIFT NURSE. PATIENT IN STABLE CONDITION
--- NOTE | 2019-04-20 07:18 | NUR ---
RECEIVED BEDSIDE REPORT FROM NIGHT NURSE. PATIENT IS IN STABLE CONDITION. FAMILY AT BEDSIDE. INTRODUCED SELF. PATIENT AWAKE, ALERT, VERBALLY RESPONSIVE. IV INTACT AND PATENT TO RIGHT HAND. BED IN LOW POSITION. SAFETY MEASURES IN PLACE. NO S/S OF DISTRESS NOTED. CALL LIGHT WITHIN REACH.
[2019-04-20 08:00] VITALS: BP 94/51
[2019-04-20] MEDS ORDERED: ATORVASTATIN 20 MG TAB PO SCH (09:00)
[2019-04-20] MEDS ORDERED: AMOX-999 PO (09:23)
--- NOTE | 2019-04-20 09:30 | NUR ---
PATIENT AWAKE, ALERT AND ORIENTED X4. FAMILY AT BEDSIDE. NO S/S OF DISTRESS NOTED.
--- NOTE | 2019-04-20 10:30 | NUR ---
CHRISTIANO DRAIN OUTPUT 20ML. Addendum: 04/20/19 at 1130 by Ema Mccarthy RN NOTED WITH SEROUS SANGUINEOUS DRAINAGE.
[2019-04-20] MEDS: PANTOPRAZOLE 40 MG INJ VIAL IVP SCH (10:40)
[2019-04-20] MEDS: LACTOBACILLUS RHAMNOSUS GG 1 EACH CAP PO SCH (10:40)
--- NOTE | 2019-04-20 11:25 | NUR ---
PATIENT AAOX4. PATIENT AMBULATED TO THE HALLWAYS WITH STEADY GAIT. NO S/S OF DISTRESS NOTED. CHRISTIANO DRAIN INTACT.
[2019-04-20 12:00] VITALS: BP 136/85
--- NOTE | 2019-04-20 13:30 | NUR ---
PATIENT ALERT, ORIENTED X4. NO S/S OF DISTRESS NOTED.
--- NOTE | 2019-04-20 15:30 | NUR ---
PATIENT IS AAOX4. NEEDS MET NO S/S OF DISTRESS NOTED.
[2019-04-20] MEDS ORDERED: INFLUENZA VACCINE QUAD 0.5 ML SYR IMVAC PRN (15:40)
[2019-04-20] MEDS ORDERED: INFLUENZA VACCINE QUAD 0.5 ML SYR IMVAC ONE (15:51)
--- NOTE | 2019-04-20 16:30 | NUR ---
PATIENT IS DISCHARGED TO HOME WITH PRIVATE TRANSPORTATION PICKED UP BY FAMILY. DISCHARGE INSTRUCTIONS PROVIDED. ALL BELONGINGS GIVEN WITH PATIENT. FLU VACCINE GIVEN TO LEFT DELTOID ORDERED AND PATIENT REQUESTED. ALL ID BANDS REMOVED AND IV REMOVED.
[2019-04-20] MEDS: HYDROcodone/APAP 5/325 MG 1 TAB TAB PO PRN (16:40)
== END 2019-04-20 16:50 | disposition home or self-care (01) | DRG 261 ==
LOC: EDBD 19:49 → MED 19:49 → MTU 23:56
PROVIDERS: ADMIT General Practice; ATTEND General Practice
PROC: 0FC98ZZ Extirpation of Matter from Common Bile Duct, Via Natural or Artificial Opening Endoscopic (ICD-10-PCS; 2019-04-16)
PROC: 0F798DZ Dilation of Common Bile Duct with Intraluminal Device, Via Natural or Artificial Opening Endoscopic (ICD-10-PCS; 2019-04-16)
PROC: BF101ZZ Fluoroscopy of Bile Ducts using Low Osmolar Contrast (ICD-10-PCS; 2019-04-16)
PROC: 0DNU4ZZ Release Omentum, Percutaneous Endoscopic Approach (ICD-10-PCS; 2019-04-17)
PROC: 0FN00ZZ Release Liver, Open Approach (ICD-10-PCS; 2019-04-17)
PROC: 0FN40ZZ Release Gallbladder, Open Approach (ICD-10-PCS; 2019-04-17)
PROC: 0DQ90ZZ Repair Duodenum, Open Approach (ICD-10-PCS; 2019-04-17)
PROC: 0FC40ZZ Extirpation of Matter from Gallbladder, Open Approach (ICD-10-PCS; principal; 2019-04-17 16:00)
DX: K80.63 Calculus of gallbladder and bile duct with acute cholecystitis with obstruction (principal); E43 Unspecified severe protein-calorie malnutrition; N39.0 Urinary tract infection, site not specified; E78.5 Hyperlipidemia, unspecified; K66.0 Peritoneal adhesions (postprocedural) (postinfection); R74.0 Nonspecific elevation of levels of transaminase and lactic acid dehydrogenase [LDH]; Z68.24 Body mass index [BMI] 24.0-24.9, adult; Z82.49 Family history of ischemic heart disease and other diseases of the circulatory system; Z83.3 Family history of diabetes mellitus; Y93.89 Activity, other specified; Y92.89 Other specified places as the place of occurrence of the external cause; Y99.8 Other external cause status; K91.71 Accidental puncture and laceration of a digestive system organ or structure during a digestive system procedure; Y83.8 Other surgical procedures as the cause of abnormal reaction of the patient, or of later complication, without mention of misadventure at the time of the procedure
CPT/HCPCS: 36415; 71045; 76705; 78445; 80048; 80053; 80076; 80305; 81001; 82150; 83036; 83690; 83735; 83880; 84100; 84439; 84443; 84484; 85025; 85610; 85730; 86886; 86900; 86901; 87081; 87086; 88300; 96374; 96375; 99285; C1769; C1773; C9113; J0696; J1100; J1170; J1200; J1885; J2270; J2405; J2704; J3490; J7030; J7042; J7060; J7120; Q0092